=== PATIENT | male | born 1950 | race Two or more races ===

== ENCOUNTER 2024-05-20 08:42 | Outpatient (OUT) | payer MEDICARE, SELFPAY | END 2024-05-20 08:43 | disposition home or self-care (01) | LOC: PST 08:43 | PROVIDERS: Visit Provider Student in an Organized Health Care Education/Training Program | DX: Z01.818 Encounter for other preprocedural examination (principal); S83.242A Other tear of medial meniscus, current injury, left knee, initial encounter; I10 Essential (primary) hypertension; E11.9 Type 2 diabetes mellitus without complications; Z79.01 Long term (current) use of anticoagulants ==

== ENCOUNTER 2024-05-30 20:21 | Emergency (ER) | payer MEDICARE, SELFPAY ==
[2024-05-30 20:28] VITALS: BP 141/70; PULSE 90; TEMP 36.6; O2SAT 95; BMI 44.8
--- NOTE | 2024-05-30 20:30 | XR_ITS ---
The [address] [address] Patient Name: FOSTER HAYDEN MRN: [id number] date: 1950 Sex: M Assigned Patient Location: ER Current Patient Location: ER Accession/Order Number: [id number] Exam Date: 05/30/2024 21:22 Report Date: 05/30/2024 23:12 At the request of: ITALIA KRAUSE Procedure: XR knee LT 3V EXAM: XR knee LT 3V HISTORY: pain s/p fall COMPARISON: None. TECHNIQUE: AP, oblique, lateral x-ray left knee. FINDINGS: No fracture or joint effusion. Under spurring. No focal bone lesion. No periarticular calcification. XR/XR knee LT 3V IMPRESSION: Negative for fracture. Electronically authenticated by: RAJESH WARE Date: 05/30/2024 23:12
--- NOTE | 2024-05-30 20:30 | XR_ITS ---
The [place] [id number] Patient Name: FOSTER HAYDEN MRN: [id number] date: 1950 Sex: M Assigned Patient Location: ER Current Patient Location: Accession/Order Number: [id number] Exam Date: 05/30/2024 21:22 Report Date: 05/30/2024 23:11 At the request of: ITALIA KRAUSE Procedure: XR shoulder RT min 2V EXAM: XR shoulder RT min 2V HISTORY: The patient is a 73-year-old male, pain s/p fall COMPARISON: None. FINDINGS: The right shoulder is radiographically negative with no evidence of fracture, dislocation, calcific tendonitis, or other osseous or articular abnormalities. The glenohumeral joint is maintained. The acromioclavicular joint is maintained. The subacromial space is maintained. XR/XR shoulder RT min 2V IMPRESSION: Negative. Electronically authenticated by: DEANGELO PUENTE Date: 05/30/2024 23:11
--- NOTE | 2024-05-30 20:39 | ED_ITS ---
HPI HPI - General Adult General Chief complaint: Fall Stated complaint: INJURY DUE TO A FALL Time Seen by Provider: 05/30/24 20:27 Source: patient Mode of arrival: ambulance History of Present Illness HPI narrative: Patient is a 73-year-old male presents to the ER with concerns of left knee pain and right lateral shoulder pain. Patient states he was in the shower getting ready to exit when he slipped striking his arm on the wall and his left knee on the ground. He presents by EMS backboarded c-collar. Patient reports no head or neck injury and denies any loss of consciousness. Patient reports pain mild to moderate left knee with known meniscal tear and is scheduled for surgery tomorrow here at this facility. Patient moving his right shoulder without difficulty but notes pain to an abrasion on the lateral deltoid. Patient takes aspirin. Denies any blood thinner use. Denies chest pain or shortness of breath. Patient denies any neck pain, head injury or loss of consciousness Severity: mild Pain Consistency: Reports constant Relieving factors: Reports none Exacerbating factors: Reports movement Treatments prior to arrival: Reports none Related Data Home Medications ?Medication ?Instructions ?Recorded ?Confirmed acetaminophen 500 mg capsule 1,000 mg PO Q6H PRN pain 05/20/24 05/20/24 albuterol sulfate 90 mcg/actuation 2 inh inhalation Q6H PRN shortness 05/20/24 05/20/24 aerosol inhaler of breath or wheezing amlodipine 10 mg tablet 10 mg PO DAILY 05/20/24 05/20/24 aspirin 81 mg tablet,delayed 81 mg PO DAILY 05/20/24 05/20/24 release (Adult Aspirin Regimen) atorvastatin 20 mg tablet 20 mg PO DAILY 05/20/24 05/20/24 doxazosin 2 mg tablet 2 mg PO DAILY 05/20/24 05/20/24 furosemide 20 mg tablet 20 mg PO DAILY 05/20/24 05/20/24 gabapentin 300 mg capsule 300 mg PO Q8H 05/20/24 05/20/24 glipizide 10 mg tablet 10 mg PO BID 05/20/24 05/20/24 insulin NPH and regular human subcut 05/20/24 lisinopril 40 mg tablet 40 mg PO DAILY 05/20/24 05/20/24 metformin 500 mg tablet 500 mg PO BID 05/20/24 05/20/24 metoprolol succinate 50 mg 50 mg PO DAILY 05/20/24 05/20/24 tablet,extended release 24 hr ropinirole 1 mg tablet 1 mg PO DAILY 05/20/24 05/20/24 sildenafil 100 mg tablet 100 mg PO DAILY PRN sexual activity 05/20/24 05/20/24 venlafaxine 37.5 mg 37.5 mg PO DAILY 05/20/24 05/20/24 capsule,extended release 24 hr Allergies Allergy/AdvReac Type Severity Reaction Status Date / Time Corticosteroids Allergy SOB Verified 05/20/24 11:42 (Glucocorticoids) hydrocodone Allergy SOB Verified 05/20/24 11:42 prednisone AdvReac Mild Nausea Verified 05/30/24 20:28 Opioid HPI Opioid Management Most Recent Opioid Data: No Data to Display Review of Systems ROS Constitutional Denies: fever, chills or change in weight Eyes Denies: change in vision Ears, nose, mouth, and throat Denies: throat pain or neck pain Cardiovascular Denies: chest pain Respiratory Denies: shortness of breath Gastrointestinal Denies: abdominal pain, nausea or vomiting Genitourinary Denies: painful urination Musculoskeletal Reports: extremity pain (Left knee, right lateral shoulder) Integumentary/Breast Denies: rash or itching Neurological Denies: headache Psychiatric Denies: anxiety Allergic/Immunologic Denies: hives [facility] Medical History (Updated 05/30/24 @ 22:00 by SABI Morin) Head trauma (03/22/24) ?S09.90XA - Unspecified injury of head, initial encounter (ICD-10) Neuropathy ?G62.9 - Polyneuropathy, unspecified (ICD-10) Postconcussive syndrome ?F07.81 - Postconcussional syndrome (ICD-10) Nausea ?R11.0 - Nausea (ICD-10) RLS (restless legs syndrome) ?G25.81 - Restless legs syndrome (ICD-10) Presence of arterial stent ?Z95.828 - Presence of other vascular implants and grafts (ICD-10) MRSA (methicillin resistant Staphylococcus aureus) carrier ?Z22.322 - Carrier or suspected carrier of Methicillin resistant Staphylococcus aureus (ICD-10) Left knee pain ?M25.562 - Pain in left knee (ICD-10) Acute medial meniscus tear of left knee ?S83.242A - Other tear of medial meniscus, current injury, left knee, initial encounter (ICD-10) Hip pain ?M25.559 - Pain in unspecified hip (ICD-10) Back pain ?M54.9 - Dorsalgia, unspecified (ICD-10) Depression ?F32.A - Depression, unspecified (ICD-10) Anxiety ?F41.9 - Anxiety disorder, unspecified (ICD-10) Pneumonia ?J18.9 - Pneumonia, unspecified organism (ICD-10) Chronic obstructive pulmonary disease ?J44.9 - Chronic obstructive pulmonary disease, unspecified (ICD-10) Chronic kidney disease ?N18.9 - Chronic kidney disease, unspecified (ICD-10) Heartburn ?R12 - Heartburn (ICD-10) Dyspnea on exertion ?R06.09 - Other forms of dyspnea (ICD-10) Coronary artery disease ?I25.10 - Atherosclerotic heart disease of [place] coronary artery without angina pectoris (ICD-10) Myocardial infarction (~2019) ?I21.9 - Acute myocardial infarction, unspecified (ICD-10) High cholesterol ?E78.00 - Pure hypercholesterolemia, unspecified (ICD-10) Hypertension ?I10 - Essential (primary) hypertension (ICD-10) Extremity edema ?R60.0 - Localized edema (ICD-10) Diabetes ?E11.9 - Type 2 diabetes mellitus without complications (ICD-10) Surgical History (Updated 05/20/24 @ 11:56 by Manda Lowe NP) History of appendectomy ?Z90.49 - Acquired absence of other specified parts of digestive tract (ICD- 10) H/O colonoscopy ?Z98.890 - Other specified postprocedural states (ICD-10) History of cataract extraction with lens replacement History of cardiac catheterization ?Z98.890 - Other specified postprocedural states (ICD-10) H/O heart artery stent ?Z95.5 - Presence of coronary angioplasty implant and graft (ICD-10) H/O knee surgery ?Z98.890 - Other specified postprocedural states (ICD-10) History of hernia repair ?Z98.890 - Other specified postprocedural states (ICD-10) ?Z87.19 - Personal history of other diseases of the digestive system (ICD-10) Family History (Updated 05/20/24 @ 08:55 by Manda Lowe NP) Other Cancer Family history of diabetes mellitus Social History (Updated 05/20/24 @ 08:50 by Manda Lowe NP) Within the past year, how often did you have a drink containing alcohol: never Score interpretation: A score less than 4 is consistent with normal alcohol consumption. Smoking status: Former smoker Non-prescribed substance use: denies use Highest level of school completed/degree received: high school graduate Exam Narrative Exam Narrative: Vital signs reviewed and nurse's notes. The patient is not hypoxic. General: Alert, no acute distress, patient resting comfortably Skin: warm, intact, no pallor noted, nonbleeding abrasion right lateral shoulder Head: Normocephalic, atraumatic Neck: No midline cervical tenderness, painless full range of motion noted. No crepitus or step-off. Eye: Normal conjunctiva, no exudates Respiratory: No acute distress, lungs CTA Musculoskeletal: No evidence of deformity to the left knee. There is no significant swelling ( pt immediately post fall). There is no ecchymosis. No erythema or warmth noted. DP and PT pulses are intact 2+. Normal sensation, normal capillary refill less than 2 seconds. There is no cyanosis or mottling noted. The patient has tenderness to anterior and lateral aspect of the left knee. The patient has no laxity with varus or valgus stressing. The patient has negative anterior drawer and [place] test limited by body habitus. The patient was able to flex and extend although with pain. Patient was able to extend leg off the cart without difficulty. No tenderness noted to the 5th MT, midfoot, ankle or proximal fibular area. There is no pain with calcaneal squeeze, achilles tendon is intact and no defect is palpated. The patient has no pelvic instability. The patient has no shortening or rotation noted to the bilateral lower extremities. No significant hematoma formation at this time and pain appears well localized to the anterior lateral patella region. Right shoulder exam unremarkable, no AC joint tenderness, near full range of motion and tenderness noted localized to abrasion on the lateral deltoid. Patient has 5 out of 5 strength with rotator cuff stressing Neurological: alert and orient x4, normal sensory and motor observed. Psychiatric: Cooperative Constitutional Vital Signs, click to edit/add: Last Vital Signs Temp 97.9 F 05/30/24 20:28 Pulse 90 05/30/24 20:28 Resp 18 05/30/24 20:28 BP 141/70 05/30/24 20:28 Pulse Ox 95 05/30/24 20:28 O2 Del Method Room Air 05/30/24 20:28 Course Vital Signs Vital signs: Vital Signs Temperature 97.9 F 05/30/24 20:28 Pulse Rate 90 05/30/24 20:28 Respiratory Rate 18 05/30/24 20:28 Blood Pressure 141/70 05/30/24 20:28 Pulse Oximetry 95 05/30/24 20:28 Oxygen Delivery Method Room Air 05/30/24 20:28 Temperature 97.9 F 05/30/24 20:28 Pulse Rate 90 05/30/24 20:28 Respiratory Rate 18 05/30/24 20:28 Blood Pressure 141/70 05/30/24 20:28 Pulse Oximetry 95 05/30/24 20:28 Oxygen Delivery Method Room Air 05/30/24 20:28 Medical Decision Making MDM Narrative Medical decision making narrative: Pt removed from c-collar and backboard on arrival. Denies head or neck injury, local complaint left knee and right lateral shoulder. Patient states he has not yet taken his evening medications, elevated blood sugar noted per EMS. Patient presents with 2 isolated injuries left is acute on chronic with known meniscus tear patient awaiting surgery tomorrow via knee arthroscopy with Dr. Banegas. Patient also has pain to the right lateral shoulder, but he is moving it well and has 5 out of 5 strength with rotator cuff testing. Ice pack applied to right shoulder and left knee on arrival, Tylenol given for pain. Plain film x-rays pending. right shoulder x-ray, personal review negative. 3 view Neg for fracture. normal alignment , mild ac joint arthritis 4 view (L) knee- no acute fx, no effusion, normal alignment. Patient was able to ambulate to get dressed, we discussed icing his left knee, may come in tomorrow as scheduled for his surgery but will need to watch for any excessive bruising and he should notify his surgeon before of the ER visit this evening. Patient verbalized understanding will take Tylenol and use ice. He will continue his preop precautions tomorrow morning. Back to blood sugar improvement with taking his home medications. Lab Data Labs: Lab Results 05/30/24 Range/Units 21:44 POC Glucose 341 H (74-106) mg/dL Discharge Plan Discharge Stand Alone Forms: Portal Instructions Chief Complaint: Fall Clinical Impression: Fall, Acute pain of left knee, Acute pain of right shoulder Patient Disposition: Home, Self-Care Time of Disposition Decision: 22:00 Condition: Good Prescriptions / Home Meds: No Action aspirin [Adult Aspirin Regimen] 81 mg tablet,delayed release (DR/EC) 81 mg PO DAILY albuterol sulfate 90 mcg/actuation HFA aerosol inhaler 2 inh inhalation Q6H PRN (Reason: shortness of breath or wheezing) atorvastatin 20 mg tablet 20 mg PO DAILY lisinopril 40 mg tablet 40 mg PO DAILY acetaminophen 500 mg capsule 1,000 mg PO Q6H PRN (Reason: pain) venlafaxine 37.5 mg capsule,extended release 24hr 37.5 mg PO DAILY ropinirole 1 mg tablet 1 mg PO DAILY furosemide 20 mg tablet 20 mg PO DAILY doxazosin 2 mg tablet 2 mg PO DAILY sildenafil 100 mg tablet 100 mg PO DAILY PRN (Reason: sexual activity) Rx Instructions: administer 30 minutes to 4 hours before activity gabapentin 300 mg capsule 300 mg PO Q8H amlodipine 10 mg tablet 10 mg PO DAILY glipizide 10 mg tablet 10 mg PO BID metoprolol succinate 50 mg tablet extended release 24 hr 50 mg PO DAILY metformin 500 mg tablet 500 mg PO BID insulin NPH and regular human [Novolin 70-30 FlexPen U-100] subcut Rx Instructions: 68 units with breakfast, 68 units with lunch, 48 units with dinner Print Language: Slovak Instructions: Knee Pain (ED) Additional Instructions: tylenol, ice. Notify Dr. Banegas in morning of Fall.. Referrals: Radha Chatterjee MD [Primary Care Provider] - 1 week
[2024-05-30] MEDS: ACETAMINOPHEN 500 MG TABLET 1000 MG PO (20:44)
[2024-05-30 21:49] LABS: Glucometer 341 mg/dL (74-106)
== END 2024-05-30 22:13 | disposition home or self-care (01) ==
PROVIDERS: Emergency Provider Emergency Medicine; PCP Student in an Organized Health Care Education/Training Program
DX: M25.562 Pain in left knee (principal); M25.511 Pain in right shoulder; W18.2XXA Fall in (into) shower or empty bathtub, initial encounter; Z87.891 Personal history of nicotine dependence
CPT/HCPCS: 36415; 73030; 73562; 99284